=== PATIENT | male | born 1965 | race Caucasian/White ===

== ENCOUNTER → 2018-05-28 | Day surgery (SDC) | payer BC ==
[~2018-05-28] MED LIST: IV RINGERS,LACTATED 1000ML 1,000 ML IV SCH; LIDOCAINE 1% PF 2 ML VIAL. ID PRN; LIDOCAINE 1% PF 2 ML VIAL. ONE; MIDAZOLAM HCL/PF 2 MG/2 ML VIAL. IV PRN; PROPOFOL 20 ML IV ONE; PROPOFOL 40 ML IV ONE; fentaNYL PF VIAL 100 MCG/2 ML VIAL IV PRN
[2018-05-28 08:06] VITALS: BP 158/62
--- NOTE | 2018-05-31 14:13 | PATHOLOGY ---
[facility] Accession Number: [id number] . 01 Material submitted: . CECAL POLYP . 01 Clinical history: . Dysphagia, change in bowel habits . 02 Diagnosis: Colon biopsy, cecal polyp: - Tubular adenoma. . (JPM:mm; 05/31/2018) [facility]/05/31/2018 . 02 Comment: There is no high grade dysplasia or evidence of malignancy. . (JPM:mml; 05/31/2018) . 02 Electronically signed: . Jac Tatum MD, Pathologist NPI- [id number] . 01 Gross description: . Received in formalin labeled "Carpenter, Landry, cecal polyp," are 2 segments of stephenson soft tissue measuring 1.0 x 0.4 x 0.4 cm in aggregate dimensions and ranging from 0.3 to 0.7 cm in maximum dimension. The specimen is submitted entirely in cassette A1. (TSD; 05/28/2018) TOB/TOB . 02 Pathologist provided ICD-10: D12.0 . 02 CPT . 227265 Specimen Comment: A courtesy copy of this report has been sent to Specimen Comment: [phone], . Specimen Comment: Report sent to / DR NEWTON Performed at: 01 [facility] [address], [place] [id number] MD Emre Huffman MD Phone: [phone] Performed at: 02 [facility] [address], [place] [id number] MD Jac Tatum MD Phone: [phone]
== END | disposition home or self-care (01) ==
LOC: ENDOS 06:01
PROVIDERS: ATTEND Internal Medicine Gastroenterology
DX: D12.0 Benign neoplasm of cecum (principal); K64.0 First degree hemorrhoids; K22.2 Esophageal obstruction; Z82.3 Family history of stroke; Z80.3 Family history of malignant neoplasm of breast; Z72.89 Other problems related to lifestyle
CPT/HCPCS: 43235; 43450; 45385; 88305; J2704; 45380